=== PATIENT | female | born 1955 | race American Indian/Alaskan Native ===

== ENCOUNTER 2017-07-25 05:26 | Emergency (ER) | payer OTHER ==
[2017-07-25 10:22] VITALS: BP 131/90
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
[2017-07-25] MEDS ORDERED: MOTRIN PO ONE (12:17)
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
== END 2017-07-25 14:34 | disposition home or self-care (01) ==
LOC: ED 05:26
DX: M54.6 Pain in thoracic spine (principal); M79.645 Pain in left finger(s); I10 Essential (primary) hypertension; M19.90 Unspecified osteoarthritis, unspecified site; Z88.0 Allergy status to penicillin; Z88.2 Allergy status to sulfonamides
CPT/HCPCS: 72040; 72072; 72100; 99283

== ENCOUNTER 2017-08-19 17:45 | Emergency (ER) | payer OTHER | END 2017-08-19 18:45 | disposition left against medical advice (07) | LOC: ED 17:45 | DX: Z53.21 Procedure and treatment not carried out due to patient leaving prior to being seen by health care provider (principal) ==